=== PATIENT | female | born 1980 | race Two or more races ===

== ENCOUNTER 2018-03-20 08:47 | Outpatient (CLI) | payer OTHER ==
[~2018-03-20 08:47] MED LIST: FIORICET TABLET1 TAB PO
== END 2018-03-20 08:49 | disposition home or self-care (01) ==
LOC: SONOGRAMA 08:47
DX: R10.2 Pelvic and perineal pain (principal)

== ENCOUNTER 2018-03-26 09:01 | Outpatient (CLI) | payer OTHER | END 2018-03-26 09:08 | disposition home or self-care (01) | LOC: SONOGRAMA 09:01 | DX: O20.0 Threatened abortion (principal) ==

== ENCOUNTER 2018-04-24 09:25 | Outpatient (CLI) | payer OTHER | END 2018-04-24 09:43 | disposition home or self-care (01) | LOC: SONOGRAMA 09:25 | DX: O20.0 Threatened abortion (principal) ==

== ENCOUNTER 2018-04-26 07:38 | Day surgery (SDC) | payer OTHER | END 2018-04-26 14:15 | disposition home or self-care (01) | LOC: CIR.AMB 07:38 | DX: O03.4 Incomplete spontaneous abortion without complication (principal) ==

== ENCOUNTER 2019-01-13 06:53 | Day surgery (SDC) | payer OTHER | END 2019-01-13 11:20 | disposition home or self-care (01) | LOC: AMB-ENDOS 06:53 | DX: K57.30 Diverticulosis of large intestine without perforation or abscess without bleeding (principal); K64.1 Second degree hemorrhoids ==

== ENCOUNTER 2019-10-22 09:52 | Outpatient (CLI) | payer OTHER | END 2019-10-22 10:17 | disposition home or self-care (01) | LOC: MAMO-SONO 09:52 | DX: Z12.31 Encounter for screening mammogram for malignant neoplasm of breast (principal); N63.10 Unspecified lump in the right breast, unspecified quadrant; N63.20 Unspecified lump in the left breast, unspecified quadrant ==

== ENCOUNTER 2021-02-09 07:44 | Outpatient (CLI) | payer OTHER | END 2021-02-09 07:51 | disposition home or self-care (01) | LOC: MAMO-SONO 07:44 | DX: Z00.01 Encounter for general adult medical examination with abnormal findings (principal); Z11.3 Encounter for screening for infections with a predominantly sexual mode of transmission; Z12.11 Encounter for screening for malignant neoplasm of colon; Z11.4 Encounter for screening for human immunodeficiency virus [HIV]; Z13.220 Encounter for screening for lipoid disorders; Z13.228 Encounter for screening for other metabolic disorders; Z13.0 Encounter for screening for diseases of the blood and blood-forming organs and certain disorders involving the immune mechanism ==

== ENCOUNTER → 2021-02-09 09:52 | Outpatient (CLI) | payer OTHER | END | disposition home or self-care (01) | LOC: LAB 09:52 | PROVIDERS: ATTEND General Practice | DX: Z00.01 Encounter for general adult medical examination with abnormal findings (principal); Z11.3 Encounter for screening for infections with a predominantly sexual mode of transmission; Z12.11 Encounter for screening for malignant neoplasm of colon; Z11.4 Encounter for screening for human immunodeficiency virus [HIV]; Z13.220 Encounter for screening for lipoid disorders; Z13.228 Encounter for screening for other metabolic disorders; Z13.0 Encounter for screening for diseases of the blood and blood-forming organs and certain disorders involving the immune mechanism; Z13.29 Encounter for screening for other suspected endocrine disorder ==

== ENCOUNTER 2022-06-01 07:21 | Outpatient (CLI) | payer OTHER | END 2022-06-01 07:26 | disposition home or self-care (01) | LOC: NUCLEAR 07:21 | PROVIDERS: ATTEND Specialist | DX: M25.50 Pain in unspecified joint (principal); R60.0 Localized edema; E08.9 Diabetes mellitus due to underlying condition without complications; Z12.11 Encounter for screening for malignant neoplasm of colon | CPT/HCPCS: 78306; A9503 ==

== ENCOUNTER 2022-11-07 09:05 | Outpatient (CLI) | payer OTHER | END 2022-11-07 09:28 | disposition home or self-care (01) | LOC: MRI 09:05 | PROVIDERS: ATTEND Internal Medicine Gastroenterology | DX: R19.7 Diarrhea, unspecified (principal); R10.9 Unspecified abdominal pain; R74.01 Elevation of levels of liver transaminase levels | CPT/HCPCS: 74181 ==